=== PATIENT | female | born 1950 | race Caucasian/White ===

== ENCOUNTER 2017-07-13 11:34 | Emergency (ER) | payer MEDICAID, MEDICARE ==
[~2017-07-13 11:34] MED LIST: Sodium Chloride 0.9% 100 ML BAG ONE
[2017-07-13] MEDS ORDERED: Amlodipine 5 MG TAB ONE (12:04)
[2017-07-13 12:22] LABS: #Basophils 0.1 thou/uL (0.0-0.2); #Eosinphils 0.1 thou/uL (0.0-0.7); #Monocytes 1.1 thou/uL (0.11-0.59); #Neutrophils 5.8 thou/uL (1.40-6.50); %Basophils 0.8 % (0.0-1.0); %Eosinophils 1.3 % (0.0-10.0); %Lymphocytes 12.6 % (21.0-51.0); %Neutrophils 72.2 % (42.0-75.0); Hemoglobin 11.6 g/dL (12.0-16.0); Mean Corpuscular HGB CONC 31.2 g/dL (32.0-36.0); Mean Corpuscular Hemoglobin 24.1 pg (27.0-31.0); Mean Corpuscular Volume 77.2 fl (81.0-99.0); Mean Platelet Volume 6.9 fL (7.4-10.4); Platelet Count 250 thou/uL (130-400); RBC Distribution Width 17.5 % (11.5-14.5); Red Blood Cell (RBC) Count 4.81 mill/uL (4.20-5.40); White Blood Cell (WBC) Count 8.1 thou/uL (4.8-10.8)
[2017-07-13 12:41] LABS: ALT (SGPT) 12 U/L (8-55); AST (SGOT) 14 U/L (5-34); Albumin 3.7 g/dL (3.4-4.8); Alkaline Phosphatase 98 U/L (40-150); Anion Gap 16 mmol/L (10-20); BUN (Urea Nitrogen) 22 mg/dL (9.8-20.1); Bilirubin, Total 0.3 mg/dL (0.2-1.2); Calc. Creatinine Clearance 0 mL/min (70-130); Calcium 10.1 mg/dL (7.8-10.44); Carbon Dioxide 26 mmol/L (23-31); Chloride 102 mmol/L (98-107); Estimated GFR-MDRD 37; Globulin 3.3 g/dL (2.4-3.5); Glucose 115 mg/dL (80-115); Potassium 4.1 mmol/L (3.5-5.1); Sodium 140 mmol/L (136-145)
[2017-07-13 12:49] LABS: Clarity Clear (Clear); Specific Gravity, Urine 1.025 (1.005-1.030)
[2017-07-13 12:50] LABS: Bilirubin Negative (Negative); Blood, Urine Trace (Negative); Glucose, Urine (Dipstick) Negative (Negative); Leukocyte Negative (Negative); Nitrite Negative (Negative); Protein, Urine (Dipstick) > or equal to 300 mg/dL (Neg-Trace); Urobilinogen 0.2 mg/dL (0.2-1.0)
--- NOTE | 2017-07-13 12:51 | RAD ---
AP CHEST: Indication: History of altered mental status. Comparison: 12-12-16 FINDINGS: The slightly prominent right pericardial fat pad is stable. Post CABG is stable. Pacemaker is stable. Chronic lung changes are similar. No acute airspace opacity, pleural effusion, or pneumothorax is ev ident. No acute osseous abnormality is evident. IMPRESSION: No acute cardiopulmonary abnormality. POS: [facility]
[2017-07-13 12:53] LABS: Bacteria/HPF 1+ HPF (None Seen); RBC/HPF 0-3 HPF (0-3); Squamous Epithelial 0-3 HPF (0-3); WBC/HPF 0-3 HPF (0-3)
[2017-07-13] MEDS ORDERED: cefTRIAXone\\ROCEPHIN 1 GM VIAL ONE (13:12)
[2017-07-13] MEDS ORDERED: Furosemide 20 MG/2 ML VIAL ONE (13:12)
--- NOTE | 2017-07-13 13:18 | CT ---
CT BRAIN WITHOUT CONTRAST: INDICATIONS: Altered mental status with left facial droop for three days. COMPARISON: 09/02/2013 FINDINGS: There is mild chronic small vessel white matter ischemic change. There is mild generalized cerebral atrophy. There are remote appearing lacunar infarctions involving the right caudate head, right glob us pallidus, and right thalamus. The right thalamic lacunar infarct is an interval development since the comparison study dated 2013. No definite acute infarct, hemorrhage, or hydrocephalus is present. There is under-pneumatization of the right mastoid air cells. The left mastoid air cells are clear. The skull is intact. IMPRESSION: 1. No acute intracranial abnormality. 2. Mild chronic small vessel white matter ischemic change. 3. 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 The right thalamic lacunar infarct is an interval development from the comparison exam. POS: [facility]
[2017-07-13] MEDS ORDERED: Nitroglycerin 2% Ointment 1 INCH/1 GM Packet ONE (13:30)
== END 2017-07-13 14:29 | disposition short-term general hospital (02) ==
LOC: MADERS 11:34
DX: I11.0 Hypertensive heart disease with heart failure (principal); R41.82 Altered mental status, unspecified; N39.0 Urinary tract infection, site not specified; E87.70 Fluid overload, unspecified; F20.9 Schizophrenia, unspecified; F31.9 Bipolar disorder, unspecified; F17.210 Nicotine dependence, cigarettes, uncomplicated; K21.9 Gastro-esophageal reflux disease without esophagitis; N28.9 Disorder of kidney and ureter, unspecified; I50.9 Heart failure, unspecified; I25.10 Atherosclerotic heart disease of native coronary artery without angina pectoris; I25.2 Old myocardial infarction; G20 Parkinson's disease; Z85.42 Personal history of malignant neoplasm of other parts of uterus; Z79.899 Other long term (current) drug therapy
CPT/HCPCS: 36415; 51701; 70450; 71045; 80053; 81003; 81015; 83880; 84443; 85025; 87086; 93005; 96365; 96375; J0696; J1940

== ENCOUNTER 2022-05-11 17:01 | Emergency (ER) | payer MEDICARE ==
[2022-05-11 18:37] LABS: #Basophils 0.1 thou/uL (0.0-0.2); #Eosinphils 0.3 thou/uL (0.0-0.7); #Lymphocytes 1.2 thou/uL (1.20-3.40); #Monocytes 0.8 thou/uL (0.11-0.59); #Neutrophils 8.7 thou/uL (1.40-6.50); %Basophils 0.9 % (0.0-1.0); %Eosinophils 2.8 % (0.0-10.0); %Lymphocytes 10.9 % (21.0-51.0); %Monocytes 7.5 % (0.0-10.0); Hemoglobin 14.5 g/dL (12.0-16.0); Mean Corpuscular HGB CONC 31.9 g/dL (32.0-36.0); Mean Corpuscular Hemoglobin 27.4 pg (27.0-31.0); Mean Corpuscular Volume 85.9 fl (78.0-98.0); Mean Platelet Volume 7.1 fL (7.4-10.4); Platelet Count 174 10x3/uL (130-400); RBC Distribution Width 13.1 % (11.5-14.5); Red Blood Cell (RBC) Count 5.27 mill/uL (4.20-5.40); White Blood Cell (WBC) Count 11.1 10x3/uL (4.8-10.8)
[2022-05-11 18:50] LABS: ALT (SGPT) 17 U/L (8-55); AST (SGOT) 15 U/L (5-34); Albumin 4.1 g/dL (3.4-4.8); Alkaline Phosphatase 107 U/L (40-110); Anion Gap 14 mmol/L (10-20); BUN (Urea Nitrogen) 34 mg/dL (9.8-20.1); Bilirubin, Total 0.3 mg/dL (0.2-1.2); Calc. Creatinine Clearance 0 mL/min (70-130); Calcium 10.1 mg/dL (7.8-10.44); Carbon Dioxide 25 mmol/L (23-31); Chloride 104 mmol/L (98-107); Estimated GFR 29; Globulin 3.2 g/dL (2.4-3.5); Glucose 121 mg/dL (83-110); Magnesium 2.3 mg/dL (1.6-2.6); Potassium 5.1 mmol/L (3.5-5.1); Protein, Total 7.3 g/dL (5.8-8.1); Sodium 138 mmol/L (136-145)
[2022-05-11] MEDS ORDERED: Lactated Ringer's 1,000 ML ONE (19:19)
[2022-05-11] MEDS ORDERED: Meclizine HCl 25 MG TAB ONE (19:19)
== END 2022-05-11 21:11 | disposition home or self-care (01) ==
LOC: MADERS 17:01
DX: I13.0 Hypertensive heart and chronic kidney disease with heart failure and stage 1 through stage 4 chronic kidney disease, or unspecified chronic kidney disease (principal); N18.9 Chronic kidney disease, unspecified; I50.9 Heart failure, unspecified; R42 Dizziness and giddiness; E78.5 Hyperlipidemia, unspecified; I25.10 Atherosclerotic heart disease of native coronary artery without angina pectoris; K21.9 Gastro-esophageal reflux disease without esophagitis; F17.210 Nicotine dependence, cigarettes, uncomplicated
CPT/HCPCS: 36415; 70450; 80053; 83605; 83735; 84443; 85025; 93005; 94760; 96360; J7120